=== PATIENT | female | born 1980 | race Caucasian/White ===

== ENCOUNTER 2020-12-25 18:58 | Emergency (ER) | payer BC ==
[~2020-12-25] VITALS: Ht 172.7 cm; Wt 77.1 kg
--- NOTE | 2020-12-26 09:10 | EKG ---
[facility] [address] [place], [place] [address] Signed Normal sinus rhythm Normal ECG No previous ECGs available Confirmed by DELPHINE RENDON MD ([id number]) on 12/26/2020 9:09:53 AM Electronically Signed By: DELPHINE RENDON MD 12/26/20909 PATIENT NAME: TIBURCIO BONILLA Electrocardiogram DATE OF : 78 PHYSICIAN: DELPHINE RENDON MD REPORT #: [id number] REPORT IS CONFIDENTIAL AND NOT TO BE RELEASED WITHOUT AUTHORIZATION
== END 2020-12-25 21:40 | disposition home or self-care (01) ==
LOC: ED 18:58
DX: R00.2 Palpitations (principal)
CPT/HCPCS: 93005; 93010; 99284-25